=== PATIENT | male | born 1945 | race African-American/Black ===

== ENCOUNTER 2021-04-14 09:07 | Inpatient (IN) | payer OTHER, MEDICAID ==
[~2021-04-14] VITALS: Ht 177.8 cm; Wt 82.6 kg
[2021-04-14 10:15] LABS: HEMOGLOBIN. 10.2 g/dL (14.0-18.0); MEAN CORPUSCULAR HEMOGLOBIN 30.5 pg (28.0-32.0); MEAN CORPUSCULAR VOLUME 96.1 fL (80.0-94.0); MEAN PLATELET VOLUME 7.9 fl (7.4-10.4); PLATELET 501 x1000/uL (130-400); RED BLOOD CELL COUNT 3.33 mill/uL (4.7-6.1); RED CELL DISTRIBUTION WIDTH 18.3 % (11.6-14.6)
[2021-04-14 10:45] LABS: PLATELET ESTIMATE INCREASED
[2021-04-14] MEDS ORDERED: VANCOMYCIN 1 G PREMIX 200 ML IV SCH (11:00)
[2021-04-14] MEDS ORDERED: SODIUM CHLORIDE 0.9% 250 ML IV SCH (11:00)
[2021-04-14] MEDS ORDERED: PIPERACILLIN/TAZOBACTAM 3.375GM/50ML PREMIX IV ONE (11:00)
[2021-04-14] MEDS ORDERED: PIPERACILLIN/TAZ 3.375G PREMIX 50 ML IV SCH ×2 (11:15→16:45)
[2021-04-14 11:25] LABS: CHLORIDE 97 mEq/L (98-107)
[2021-04-14 11:29] LABS: ETHANOL BLOOD < 10 mg/dL
[2021-04-14] MEDS ORDERED: MORPHINE SULFATE 4 MG/ML CPJ (NOT FOR IM USE) IV ONE (11:30)
[2021-04-14] MEDS ORDERED: MORPHINE SULFATE 2 MG/ML CPJ (NOT FOR IM USE) IV SCH (11:30)
[2021-04-14] MEDS ORDERED: GUAIFENESIN 200MG/10ML SUGAR FREE UDC PO PRN (16:45)
[2021-04-14] MEDS ORDERED: CLONIDINE 0.1MG TABLET PO PRN (16:45)
[2021-04-14] MEDS ORDERED: DIPHENHYDRAMINE 50MG/ML VIAL IV PRN (16:45)
[2021-04-14] MEDS ORDERED: NITROGLYCERIN 0.4MG TABLET SL SL PRN (16:45)
[2021-04-14] MEDS ORDERED: NALOXONE HCL 0.4MG/ML VIAL IV PRN (16:45)
[2021-04-14] MEDS ORDERED: DOCUSATE SODIUM 100MG CAPSULE PO PRN (16:45)
[2021-04-14] MEDS ORDERED: ACETAMINOPHEN 325MG TABLET PO PRN (16:45)
[2021-04-14] MEDS ORDERED: MAGNESIUM/ALUMINUM HYDROXIDE/SIMETHICONE 30ML UDC PO PRN (16:45)
[2021-04-14] MEDS ORDERED: IPRATROPIUM/ALBUTEROL 0.5-3(2.5)MG/3ML NEB NEB PRN (16:45)
[2021-04-14] MEDS ORDERED: ONDANSETRON HCL 4MG/2ML INJ IV PRN (16:45)
[2021-04-14] MEDS: TRAMADOL 50MG TABLET PO PRN ×2 (17:03→23:57)
[2021-04-14] MEDS: BLOOD SUGAR DIAGNOSTIC STRIP TEST SCH ×2 (17:03→21:26)
[2021-04-14 17:16] LABS: T4 FREE 0.96 ng/dL (0.76-1.46)
[2021-04-14 17:47] LABS: VITAMIN B12 SERUM >2000 pg/mL pg/mL (211-911)
[2021-04-14] MEDS ORDERED: VANCOMYCIN 750 MG PREMIX 150 ML IV NR (18:00)
[2021-04-14] MEDS ORDERED: ENOXAPARIN 30MG/0.3ML SYR SUBCUT SCH (18:00)
[2021-04-14] MEDS: INSULIN LISPRO 100 UNITS/ML SUBCUT SCH ×2 (19:31→22:00)
[2021-04-14] MEDS ORDERED: ENOXAPARIN 100MG/ML SYR SUBCUT SCH (20:00)
[2021-04-14 21:00] VITALS: BP 120/55
[2021-04-14] MEDS ORDERED: ZOLPIDEM TARTRATE 5MG TABLET PO PRN (21:00)
[2021-04-14] MEDS: FAMOTIDINE 20MG TABLET PO SCH (21:26)
[2021-04-14] MEDS ORDERED: INSULIN GLARGINE UD 100 UNITS/ML SYR SUBCUT SCH (22:00)
[2021-04-14] MEDS ORDERED: PIPERACILLIN/TAZOBACTAM 3.375 G in DEXTROSE 5% WATER 50 ML IV SCH (23:00)
[2021-04-14] MEDS: PIPERACILLIN/TAZOBACTAM 3.375 G in DEXTROSE 5% WATER 50 ML IV SCH (23:57)
[2021-04-15] VITALS: BP 120/55
[2021-04-15 01:23] LABS: CREATINE KINASE MB FRACTION 2.9 ng/mL (0.5-3.6)
[2021-04-15] MEDS ORDERED: CALC667T8 PO (03:35)
[2021-04-15 04:00] VITALS: BP 105/48
[2021-04-15] MEDS: BLOOD SUGAR DIAGNOSTIC STRIP TEST SCH ×4 (06:04→21:32)
[2021-04-15 06:30] LABS: EOSINOPHILS % 2.7 % (0.0-5.0); HEMOGLOBIN. 11.1 g/dL (14.0-18.0); LYMPHOCYTES % 7.9 % (20.0-50.0); MEAN CORPUSCULAR HEMOGLOBIN 31.1 pg (28.0-32.0); MEAN CORPUSCULAR VOLUME 95.5 fL (80.0-94.0); MEAN PLATELET VOLUME 7.5 fl (7.4-10.4); MONOCYTES % 7.5 % (2.0-8.0); NEUTROPHILS % 80.9 % (40.0-76.0); PLATELET 529 x1000/uL (130-400); RED BLOOD CELL COUNT 3.56 mill/uL (4.7-6.1); RED CELL DISTRIBUTION WIDTH 17.5 % (11.6-14.6)
[2021-04-15 06:50] LABS: INR 1.3; PROTHROMBIN TIME 13.3 sec (9.6-11.0)
[2021-04-15 07:00] LABS: CHLORIDE 98 mEq/L (98-107)
[2021-04-15] MEDS: INSULIN LISPRO 100 UNITS/ML SUBCUT SCH ×4 (07:10→21:33)
[2021-04-15 07:12] LABS: CREATINE KINASE 53 IU/L (39-308); PHOSPHORUS 3.6 mg/dL (2.5-4.9)
[2021-04-15 07:22] LABS: CREATINE KINASE MB FRACTION 3.5 ng/mL (0.5-3.6)
[2021-04-15 08:00] VITALS: BP 125/60
[2021-04-15] MEDS: ASPIRIN 325MG EC TABLET PO SCH (08:51)
[2021-04-15 12:00] VITALS: BP 128/57
[2021-04-15] MEDS: TRAMADOL 50MG TABLET PO PRN (12:04)
[2021-04-15] MEDS: PIPERACILLIN/TAZOBACTAM 3.375 G in DEXTROSE 5% WATER 50 ML IV SCH ×2 (12:04→23:51)
[2021-04-15] MEDS: LIDOCAINE/PRILOCAINE CREAM 5 GM TUBE TOP SCH (14:29)
[2021-04-15 16:00] VITALS: BP 112/56
[2021-04-15 20:00] VITALS: BP 116/60
[2021-04-15] MEDS: ENOXAPARIN 80MG/0.8ML SYR SUBCUT SCH (21:32)
[2021-04-15] MEDS: FAMOTIDINE 20MG TABLET PO SCH (21:33)
[2021-04-15] MEDS: INSULIN GLARGINE UD 100 UNITS/ML SYR SUBCUT SCH (22:23)
[2021-04-16] VITALS (7 sets, daily range): BP systolic 113–129; BP diastolic 52–69
[2021-04-16] MEDS: TRAMADOL 50MG TABLET PO PRN ×2 (04:54→09:57)
[2021-04-16 06:57] LABS: BASOPHILS % 1.2 % (0.0-2.0); HEMATOCRIT. 31.2 % (42.0-52.0); HEMOGLOBIN. 10.4 g/dL (14.0-18.0); LYMPHOCYTES % 7.6 % (20.0-50.0); MEAN CORPUSCULAR HEMOGLOBIN 31.5 pg (28.0-32.0); MEAN CORPUSCULAR VOLUME 94.7 fL (80.0-94.0); MEAN PLATELET VOLUME 7.3 fl (7.4-10.4); MONOCYTES % 8.9 % (2.0-8.0); NEUTROPHILS % 79.3 % (40.0-76.0); PLATELET 518 x1000/uL (130-400); RED BLOOD CELL COUNT 3.29 mill/uL (4.7-6.1); RED CELL DISTRIBUTION WIDTH 17.4 % (11.6-14.6)
[2021-04-16] MEDS: BLOOD SUGAR DIAGNOSTIC STRIP TEST SCH ×5 (07:01→20:39)
[2021-04-16] MEDS: INSULIN LISPRO 100 UNITS/ML SUBCUT SCH ×5 (07:01→20:40)
[2021-04-16 07:22] LABS: PHOSPHORUS 3.2 mg/dL (2.5-4.9)
[2021-04-16] MEDS: ASPIRIN 325MG EC TABLET PO SCH (08:57)
[2021-04-16] MEDS: LIDOCAINE/PRILOCAINE CREAM 5 GM TUBE TOP SCH (08:57)
[2021-04-16] MEDS: PIPERACILLIN/TAZOBACTAM 3.375 G in DEXTROSE 5% WATER 50 ML IV SCH ×2 (11:24→23:46)
[2021-04-16] MEDS ORDERED: VANCOMYCIN 750 MG PREMIX 150 ML IV NR (14:00)
[2021-04-16] MEDS: FAMOTIDINE 20MG TABLET PO SCH (20:39)
[2021-04-16] MEDS: ENOXAPARIN 80MG/0.8ML SYR SUBCUT SCH (20:40)
[2021-04-16] MEDS: INSULIN GLARGINE UD 100 UNITS/ML SYR SUBCUT SCH (22:38)
[2021-04-17] VITALS: BP 121/60
[2021-04-17 04:00] VITALS: BP 126/57
[2021-04-17] MEDS: BLOOD SUGAR DIAGNOSTIC STRIP TEST SCH ×4 (06:22→21:30)
[2021-04-17] MEDS: DEXTROSE 50% WATER 50ML SYRINGE IV PRN ×3 (06:22→16:50)
[2021-04-17] MEDS: INSULIN LISPRO 100 UNITS/ML SUBCUT SCH ×4 (06:22→21:00)
[2021-04-17 07:51] VITALS: BP 125/69
[2021-04-17 08:18] LABS: BASOPHILS % 1.3 % (0.0-2.0); EOSINOPHILS % 2.1 % (0.0-5.0); HEMATOCRIT. 31.8 % (42.0-52.0); HEMOGLOBIN. 10.3 g/dL (14.0-18.0); LYMPHOCYTES % 8.8 % (20.0-50.0); MEAN CORPUSCULAR HEMOGLOBIN 30.9 pg (28.0-32.0); MEAN CORPUSCULAR VOLUME 94.9 fL (80.0-94.0); MEAN PLATELET VOLUME 7.3 fl (7.4-10.4); MONOCYTES % 6.2 % (2.0-8.0); NEUTROPHILS % 81.6 % (40.0-76.0); PLATELET 509 x1000/uL (130-400); RED BLOOD CELL COUNT 3.35 mill/uL (4.7-6.1)
[2021-04-17 08:26] LABS: PHOSPHORUS 3.2 mg/dL (2.5-4.9)
[2021-04-17] MEDS: LIDOCAINE/PRILOCAINE CREAM 5 GM TUBE TOP SCH (08:40)
[2021-04-17] MEDS: TRAMADOL 50MG TABLET PO PRN ×2 (08:41→21:49)
[2021-04-17] MEDS: ASPIRIN 325MG EC TABLET PO SCH (08:41)
[2021-04-17] MEDS: PIPERACILLIN/TAZOBACTAM 3.375 G in DEXTROSE 5% WATER 50 ML IV SCH (11:38)
[2021-04-17 12:00] VITALS: BP 130/59
[2021-04-17 16:00] VITALS: BP 130/64
[2021-04-17 20:00] VITALS: BP 137/67
[2021-04-17] MEDS: ENOXAPARIN 80MG/0.8ML SYR SUBCUT SCH (21:46)
[2021-04-17] MEDS: FAMOTIDINE 20MG TABLET PO SCH (21:46)
[2021-04-17] MEDS: INSULIN GLARGINE UD 100 UNITS/ML SYR SUBCUT SCH (22:00)
[2021-04-18] VITALS: BP 134/69
[2021-04-18] MEDS: PIPERACILLIN/TAZOBACTAM 3.375 G in DEXTROSE 5% WATER 50 ML IV SCH ×2 (00:21→12:09)
[2021-04-18 04:00] VITALS: BP 129/62
[2021-04-18] MEDS: DEXTROSE 50% WATER 50ML SYRINGE IV PRN (05:47)
[2021-04-18] MEDS: BLOOD SUGAR DIAGNOSTIC STRIP TEST SCH ×4 (05:48→21:18)
[2021-04-18] MEDS: INSULIN LISPRO 100 UNITS/ML SUBCUT SCH ×4 (06:13→21:21)
[2021-04-18 08:00] VITALS: BP 138/66
[2021-04-18] MEDS: ASPIRIN 325MG EC TABLET PO SCH (08:47)
[2021-04-18] MEDS: TRAMADOL 50MG TABLET PO PRN (08:51)
[2021-04-18] MEDS: LIDOCAINE/PRILOCAINE CREAM 5 GM TUBE TOP SCH (08:53)
[2021-04-18 11:55] VITALS: BP 113/50
[2021-04-18 16:00] VITALS: BP 128/58
[2021-04-18 20:00] VITALS: BP 137/63
[2021-04-18] MEDS: ENOXAPARIN 80MG/0.8ML SYR SUBCUT SCH (21:18)
[2021-04-18] MEDS: FAMOTIDINE 20MG TABLET PO SCH (21:18)
[2021-04-18] MEDS: INSULIN GLARGINE UD 100 UNITS/ML SYR SUBCUT SCH (22:00)
[2021-04-19] VITALS: BP 124/59
[2021-04-19] MEDS: PIPERACILLIN/TAZOBACTAM 3.375 G in DEXTROSE 5% WATER 50 ML IV SCH ×2 (00:30→12:49)
[2021-04-19 04:00] VITALS: BP 136/65
[2021-04-19] MEDS: BLOOD SUGAR DIAGNOSTIC STRIP TEST SCH ×4 (06:10→21:00)
[2021-04-19] MEDS: INSULIN LISPRO 100 UNITS/ML SUBCUT SCH ×4 (06:11→21:54)
[2021-04-19 07:19] LABS: BASOPHILS % 0.9 % (0.0-2.0); EOSINOPHILS % 2.5 % (0.0-5.0); HEMATOCRIT. 33.6 % (42.0-52.0); HEMOGLOBIN. 10.8 g/dL (14.0-18.0); LYMPHOCYTES % 8.2 % (20.0-50.0); MEAN CORPUSCULAR HEMOGLOBIN 30.7 pg (28.0-32.0); MEAN CORPUSCULAR VOLUME 95.7 fL (80.0-94.0); MEAN PLATELET VOLUME 7.3 fl (7.4-10.4); MONOCYTES % 7.5 % (2.0-8.0); NEUTROPHILS % 80.9 % (40.0-76.0); PLATELET 490 x1000/uL (130-400); RED BLOOD CELL COUNT 3.51 mill/uL (4.7-6.1); RED CELL DISTRIBUTION WIDTH 17.9 % (11.6-14.6)
[2021-04-19 07:43] LABS: PHOSPHORUS 4.2 mg/dL (2.5-4.9)
[2021-04-19 08:00] VITALS: BP 142/62
[2021-04-19] MEDS: LIDOCAINE/PRILOCAINE CREAM 5 GM TUBE TOP SCH (08:14)
[2021-04-19] MEDS: TRAMADOL 50MG TABLET PO PRN (08:26)
[2021-04-19] MEDS: ASPIRIN 325MG EC TABLET PO SCH (08:26)
[2021-04-19 12:00] VITALS: BP 147/83
[2021-04-19] MEDS ORDERED: VANCOMYCIN 750 MG PREMIX 150 ML IV NR (14:00)
[2021-04-19 14:56] LABS: HEPATITIS B SURFACE ANTIGEN NEGATIVE
[2021-04-19 16:00] VITALS: BP 148/68
[2021-04-19] MEDS: ACETAMINOPHEN 325MG TABLET PO PRN (17:48)
[2021-04-19 20:00] VITALS: BP 146/71
[2021-04-19 20:57] LABS: HEPATITIS B SURFACE ANTIGEN NEGATIVE
[2021-04-19] MEDS: ENOXAPARIN 80MG/0.8ML SYR SUBCUT SCH (21:53)
[2021-04-19] MEDS: FAMOTIDINE 20MG TABLET PO SCH (21:53)
[2021-04-19] MEDS: INSULIN GLARGINE UD 100 UNITS/ML SYR SUBCUT SCH (21:55)
[2021-04-20] VITALS: BP 143/71
[2021-04-20 04:00] VITALS: BP 110/68
[2021-04-20] MEDS: ACETAMINOPHEN 325MG TABLET PO PRN ×2 (04:05→12:34)
[2021-04-20] MEDS: INSULIN LISPRO 100 UNITS/ML SUBCUT SCH ×4 (06:18→21:29)
[2021-04-20] MEDS: BLOOD SUGAR DIAGNOSTIC STRIP TEST SCH ×4 (06:18→20:00)
[2021-04-20 07:01] LABS: BASOPHILS % 1.1 % (0.0-2.0); HEMOGLOBIN. 11.9 g/dL (14.0-18.0); LYMPHOCYTES % 7.5 % (20.0-50.0); MEAN CORPUSCULAR HEMOGLOBIN 31.7 pg (28.0-32.0); MEAN CORPUSCULAR VOLUME 96.2 fL (80.0-94.0); MEAN PLATELET VOLUME 7.4 fl (7.4-10.4); MONOCYTES % 8.3 % (2.0-8.0); NEUTROPHILS % 81.1 % (40.0-76.0); PLATELET 415 x1000/uL (130-400); RED BLOOD CELL COUNT 3.74 mill/uL (4.7-6.1); RED CELL DISTRIBUTION WIDTH 18.4 % (11.6-14.6)
[2021-04-20 07:31] LABS: PHOSPHORUS 3.9 mg/dL (2.5-4.9)
[2021-04-20 08:00] VITALS: BP 150/64
[2021-04-20] MEDS: LIDOCAINE/PRILOCAINE CREAM 5 GM TUBE TOP SCH (08:05)
[2021-04-20] MEDS: ASPIRIN 325MG EC TABLET PO SCH (08:18)
[2021-04-20 12:00] VITALS: BP 142/65
[2021-04-20 16:00] VITALS: BP 139/69
[2021-04-20 20:00] VITALS: BP 149/72
[2021-04-20] MEDS: FAMOTIDINE 20MG TABLET PO SCH (21:26)
[2021-04-20] MEDS: ENOXAPARIN 80MG/0.8ML SYR SUBCUT SCH (21:29)
[2021-04-20 21:41] LABS: HEPATITIS B SURFACE ANTIGEN NEGATIVE
[2021-04-20] MEDS: INSULIN GLARGINE UD 100 UNITS/ML SYR SUBCUT SCH (22:48)
[2021-04-21] VITALS: BP 148/62
[2021-04-21 04:00] VITALS: BP 146/112
[2021-04-21 05:25] LABS: BASOPHILS % 1.2 % (0.0-2.0); EOSINOPHILS % 2.5 % (0.0-5.0); HEMATOCRIT. 36.4 % (42.0-52.0); HEMOGLOBIN. 11.9 g/dL (14.0-18.0); LYMPHOCYTES % 10.6 % (20.0-50.0); MEAN CORPUSCULAR HEMOGLOBIN 31.8 pg (28.0-32.0); MEAN CORPUSCULAR VOLUME 97.2 fL (80.0-94.0); MEAN PLATELET VOLUME 7.4 fl (7.4-10.4); NEUTROPHILS % 77.7 % (40.0-76.0); PLATELET 408 x1000/uL (130-400); RED BLOOD CELL COUNT 3.75 mill/uL (4.7-6.1); RED CELL DISTRIBUTION WIDTH 18.7 % (11.6-14.6)
[2021-04-21 05:33] LABS: CHLORIDE 104 mEq/L (98-107)
[2021-04-21 05:45] LABS: PHOSPHORUS 4.4 mg/dL (2.5-4.9)
[2021-04-21] MEDS: BLOOD SUGAR DIAGNOSTIC STRIP TEST SCH ×4 (05:55→20:39)
[2021-04-21] MEDS: ACETAMINOPHEN 325MG TABLET PO PRN (05:56)
[2021-04-21] MEDS: INSULIN LISPRO 100 UNITS/ML SUBCUT SCH ×4 (07:10→22:19)
[2021-04-21 08:00] VITALS: BP 153/73
[2021-04-21] MEDS: LIDOCAINE/PRILOCAINE CREAM 5 GM TUBE TOP SCH (08:10)
[2021-04-21] MEDS: ASPIRIN 325MG EC TABLET PO SCH (08:18)
[2021-04-21 12:00] VITALS: BP 152/70
[2021-04-21 16:00] VITALS: BP 129/67
[2021-04-21 20:00] VITALS: BP 143/65
[2021-04-21] MEDS: FAMOTIDINE 20MG TABLET PO SCH (22:18)
[2021-04-21] MEDS: ENOXAPARIN 80MG/0.8ML SYR SUBCUT SCH (22:18)
[2021-04-21] MEDS: INSULIN GLARGINE UD 100 UNITS/ML SYR SUBCUT SCH (22:54)
[2021-04-22] VITALS: BP 149/72
[2021-04-22 04:00] VITALS: BP 140/68
[2021-04-22] MEDS: BLOOD SUGAR DIAGNOSTIC STRIP TEST SCH ×4 (06:21→20:41)
[2021-04-22] MEDS: INSULIN LISPRO 100 UNITS/ML SUBCUT SCH ×4 (06:29→20:42)
[2021-04-22 08:00] VITALS: BP 148/73
[2021-04-22] MEDS: LIDOCAINE/PRILOCAINE CREAM 5 GM TUBE TOP SCH (08:45)
[2021-04-22] MEDS: ASPIRIN 325MG EC TABLET PO SCH (08:45)
[2021-04-22 12:00] VITALS: BP 144/69
[2021-04-22] MEDS: ACETAMINOPHEN 325MG TABLET PO PRN ×2 (12:46→20:49)
[2021-04-22 16:00] VITALS: BP 149/73
[2021-04-22 20:00] VITALS: BP 144/69
[2021-04-22] MEDS: ENOXAPARIN 80MG/0.8ML SYR SUBCUT SCH (20:48)
[2021-04-22] MEDS: INSULIN GLARGINE UD 100 UNITS/ML SYR SUBCUT SCH (20:48)
[2021-04-22] MEDS: FAMOTIDINE 20MG TABLET PO SCH (20:49)
[2021-04-23] VITALS: BP 150/76
[2021-04-23 04:00] VITALS: BP 158/76
[2021-04-23] MEDS: BLOOD SUGAR DIAGNOSTIC STRIP TEST SCH ×4 (06:07→21:26)
[2021-04-23] MEDS: INSULIN LISPRO 100 UNITS/ML SUBCUT SCH ×4 (07:10→21:28)
[2021-04-23 08:00] VITALS: BP 146/67
[2021-04-23] MEDS: LIDOCAINE/PRILOCAINE CREAM 5 GM TUBE TOP SCH (08:44)
[2021-04-23] MEDS: ASPIRIN 325MG EC TABLET PO SCH (08:44)
[2021-04-23 12:00] VITALS: BP 133/72
[2021-04-23 12:17] LABS: HEMATOCRIT. 32.5 % (42.0-52.0); HEMOGLOBIN. 10.6 g/dL (14.0-18.0); MEAN CORPUSCULAR HEMOGLOBIN 30.8 pg (28.0-32.0); MEAN CORPUSCULAR VOLUME 94.2 fL (80.0-94.0); MEAN PLATELET VOLUME 7.5 fl (7.4-10.4); PLATELET 366 x1000/uL (130-400); RED BLOOD CELL COUNT 3.45 mill/uL (4.7-6.1); RED CELL DISTRIBUTION WIDTH 17.4 % (11.6-14.6)
[2021-04-23 13:12] LABS: PHOSPHORUS 3.2 mg/dL (2.5-4.9)
[2021-04-23 13:22] LABS: PLATELET ESTIMATE NORMAL
[2021-04-23 16:00] VITALS: BP 139/66
[2021-04-23] MEDS: ACETAMINOPHEN 325MG TABLET PO PRN (18:31)
[2021-04-23 20:00] VITALS: BP 138/64
[2021-04-23] MEDS: ENOXAPARIN 80MG/0.8ML SYR SUBCUT SCH (21:04)
[2021-04-23] MEDS: FAMOTIDINE 20MG TABLET PO SCH (21:04)
[2021-04-23] MEDS: INSULIN GLARGINE UD 100 UNITS/ML SYR SUBCUT SCH (22:00)
[2021-04-24] VITALS: BP 108/58
[2021-04-24 04:00] VITALS: BP 130/59
[2021-04-24] MEDS: BLOOD SUGAR DIAGNOSTIC STRIP TEST SCH ×4 (06:02→21:17)
[2021-04-24] MEDS: INSULIN LISPRO 100 UNITS/ML SUBCUT SCH ×4 (06:57→21:16)
[2021-04-24 08:00] VITALS: BP 138/69
[2021-04-24] MEDS: LIDOCAINE/PRILOCAINE CREAM 5 GM TUBE TOP SCH (09:00)
[2021-04-24] MEDS: ASPIRIN 325MG EC TABLET PO SCH (09:53)
[2021-04-24 12:00] VITALS: BP 138/69
[2021-04-24 16:00] VITALS: BP 125/77
[2021-04-24 20:00] VITALS: BP 152/81
[2021-04-24] MEDS: FAMOTIDINE 20MG TABLET PO SCH (21:11)
[2021-04-24] MEDS: ENOXAPARIN 80MG/0.8ML SYR SUBCUT SCH (21:11)
[2021-04-24] MEDS: INSULIN GLARGINE UD 100 UNITS/ML SYR SUBCUT SCH (21:17)
[2021-04-25] VITALS: BP 127/64
[2021-04-25 04:00] VITALS: BP 136/67
[2021-04-25] MEDS: BLOOD SUGAR DIAGNOSTIC STRIP TEST SCH ×4 (06:01→21:39)
[2021-04-25] MEDS: INSULIN LISPRO 100 UNITS/ML SUBCUT SCH ×4 (06:01→21:39)
[2021-04-25 06:27] LABS: EOSINOPHILS % 2.1 % (0.0-5.0); HEMATOCRIT. 36.8 % (42.0-52.0); HEMOGLOBIN. 11.8 g/dL (14.0-18.0); LYMPHOCYTES % 10.3 % (20.0-50.0); MEAN CORPUSCULAR HEMOGLOBIN 31.3 pg (28.0-32.0); MEAN CORPUSCULAR VOLUME 97.6 fL (80.0-94.0); MEAN PLATELET VOLUME 7.9 fl (7.4-10.4); MONOCYTES % 7.6 % (2.0-8.0); PLATELET 379 x1000/uL (130-400); RED BLOOD CELL COUNT 3.77 mill/uL (4.7-6.1); RED CELL DISTRIBUTION WIDTH 18.7 % (11.6-14.6)
[2021-04-25 08:00] VITALS: BP 140/71
[2021-04-25] MEDS: LIDOCAINE/PRILOCAINE CREAM 5 GM TUBE TOP SCH (09:00)
[2021-04-25] MEDS: ASPIRIN 325MG EC TABLET PO SCH (09:47)
[2021-04-25 12:00] VITALS: BP 118/60
[2021-04-25 16:00] VITALS: BP 131/67
[2021-04-25] MEDS ORDERED: HYDROCORTISONE 1% RECTAL CREAM 30GM PR PRN (16:00)
[2021-04-25] MEDS: ACETAMINOPHEN 325MG TABLET PO PRN (18:57)
[2021-04-25 20:00] VITALS: BP 109/52
[2021-04-25] MEDS: HYDROCORTISONE 1% CREAM 30GM TOP PRN (20:05)
[2021-04-25] MEDS: FAMOTIDINE 20MG TABLET PO SCH (21:38)
[2021-04-25] MEDS: ENOXAPARIN 80MG/0.8ML SYR SUBCUT SCH (21:38)
[2021-04-25] MEDS: INSULIN GLARGINE UD 100 UNITS/ML SYR SUBCUT SCH (21:38)
[2021-04-26] VITALS: BP 133/63
[2021-04-26 04:00] VITALS: BP 121/58
[2021-04-26] MEDS: INSULIN LISPRO 100 UNITS/ML SUBCUT SCH ×4 (06:46→21:46)
[2021-04-26] MEDS: BLOOD SUGAR DIAGNOSTIC STRIP TEST SCH ×4 (06:46→21:46)
[2021-04-26 06:58] LABS: BASOPHILS % 1.1 % (0.0-2.0); EOSINOPHILS % 2.8 % (0.0-5.0); MEAN CORPUSCULAR HEMOGLOBIN 31.1 pg (28.0-32.0); MEAN CORPUSCULAR VOLUME 95.8 fL (80.0-94.0); MEAN PLATELET VOLUME 7.9 fl (7.4-10.4); MONOCYTES % 10.4 % (2.0-8.0); NEUTROPHILS % 73.7 % (40.0-76.0); PLATELET 400 x1000/uL (130-400); RED BLOOD CELL COUNT 3.86 mill/uL (4.7-6.1); RED CELL DISTRIBUTION WIDTH 18.3 % (11.6-14.6)
[2021-04-26 07:07] LABS: PHOSPHORUS 5.9 mg/dL (2.5-4.9)
[2021-04-26 07:11] LABS: HEPATITIS B SURFACE ANTIGEN NEGATIVE
[2021-04-26 08:00] VITALS: BP 138/57
[2021-04-26] MEDS: ASPIRIN 325MG EC TABLET PO SCH (08:55)
[2021-04-26] MEDS: HYDROCORTISONE 1% CREAM 30GM TOP PRN (08:56)
[2021-04-26] MEDS: LIDOCAINE/PRILOCAINE CREAM 5 GM TUBE TOP SCH (08:56)
[2021-04-26 12:00] VITALS: BP 120/60
[2021-04-26 16:00] VITALS: BP 115/61
[2021-04-26] MEDS: ACETAMINOPHEN 325MG TABLET PO PRN (16:47)
[2021-04-26 20:00] VITALS: BP 121/67
[2021-04-26] MEDS: FAMOTIDINE 20MG TABLET PO SCH (20:57)
[2021-04-26] MEDS: ENOXAPARIN 80MG/0.8ML SYR SUBCUT SCH (20:58)
[2021-04-26] MEDS: INSULIN GLARGINE UD 100 UNITS/ML SYR SUBCUT SCH (22:00)
[2021-04-27] VITALS: BP 125/62
[2021-04-27] MEDS: ACETAMINOPHEN 325MG TABLET PO PRN ×2 (02:09→11:20)
[2021-04-27 03:59] VITALS: BP 131/64
[2021-04-27] MEDS: BLOOD SUGAR DIAGNOSTIC STRIP TEST SCH ×4 (06:53→20:52)
[2021-04-27] MEDS: INSULIN LISPRO 100 UNITS/ML SUBCUT SCH ×4 (06:53→20:52)
[2021-04-27 07:10] LABS: BASOPHILS % 1.1 % (0.0-2.0); EOSINOPHILS % 2.2 % (0.0-5.0); HEMATOCRIT. 34.6 % (42.0-52.0); HEMOGLOBIN. 11.1 g/dL (14.0-18.0); LYMPHOCYTES % 7.1 % (20.0-50.0); MEAN CORPUSCULAR HEMOGLOBIN 30.8 pg (28.0-32.0); MONOCYTES % 8.5 % (2.0-8.0); NEUTROPHILS % 81.1 % (40.0-76.0); PLATELET 389 x1000/uL (130-400); RED CELL DISTRIBUTION WIDTH 18.6 % (11.6-14.6)
[2021-04-27 07:40] LABS: PHOSPHORUS 5.4 mg/dL (2.5-4.9)
[2021-04-27 08:00] VITALS: BP 108/49
[2021-04-27] MEDS: LIDOCAINE/PRILOCAINE CREAM 5 GM TUBE TOP SCH (09:00)
[2021-04-27] MEDS: ASPIRIN 325MG EC TABLET PO SCH (09:39)
[2021-04-27 12:00] VITALS: BP 136/64
[2021-04-27 16:00] VITALS: BP 114/69
[2021-04-27 20:00] VITALS: BP 105/63
[2021-04-27] MEDS: CALAMINE LOTION 120ML TOP SCH (20:52)
[2021-04-27] MEDS: FAMOTIDINE 20MG TABLET PO SCH (20:52)
[2021-04-27] MEDS: INSULIN GLARGINE UD 100 UNITS/ML SYR SUBCUT SCH (20:52)
[2021-04-27] MEDS: ENOXAPARIN 80MG/0.8ML SYR SUBCUT SCH (20:53)
[2021-04-28] VITALS: BP 124/60
[2021-04-28 04:00] VITALS: BP 128/62
[2021-04-28] MEDS: BLOOD SUGAR DIAGNOSTIC STRIP TEST SCH ×4 (06:15→21:12)
[2021-04-28] MEDS: INSULIN LISPRO 100 UNITS/ML SUBCUT SCH ×4 (06:15→21:00)
[2021-04-28 07:19] LABS: BASOPHILS % 1.1 % (0.0-2.0); EOSINOPHILS % 2.2 % (0.0-5.0); HEMOGLOBIN. 11.7 g/dL (14.0-18.0); LYMPHOCYTES % 9.2 % (20.0-50.0); MEAN CORPUSCULAR HEMOGLOBIN 31.2 pg (28.0-32.0); MEAN CORPUSCULAR VOLUME 95.9 fL (80.0-94.0); MONOCYTES % 7.2 % (2.0-8.0); NEUTROPHILS % 80.3 % (40.0-76.0); PLATELET 423 x1000/uL (130-400); RED BLOOD CELL COUNT 3.75 mill/uL (4.7-6.1)
[2021-04-28 07:27] LABS: PHOSPHORUS 6.2 mg/dL (2.5-4.9)
[2021-04-28 08:00] VITALS: BP 122/56
[2021-04-28] MEDS: ASPIRIN 325MG EC TABLET PO SCH (08:54)
[2021-04-28] MEDS: CALAMINE LOTION 120ML TOP SCH ×2 (08:55→23:03)
[2021-04-28] MEDS: LIDOCAINE/PRILOCAINE CREAM 5 GM TUBE TOP SCH (08:55)
[2021-04-28 12:00] VITALS: BP 124/55
[2021-04-28 16:00] VITALS: BP 130/58
[2021-04-28 20:00] VITALS: BP 126/59
[2021-04-28] MEDS: FAMOTIDINE 20MG TABLET PO SCH (23:03)
[2021-04-28] MEDS: ACETAMINOPHEN 325MG TABLET PO PRN (23:04)
[2021-04-28] MEDS: INSULIN GLARGINE UD 100 UNITS/ML SYR SUBCUT SCH (23:04)
[2021-04-28] MEDS: ENOXAPARIN 80MG/0.8ML SYR SUBCUT SCH (23:04)
[2021-04-29] VITALS: BP 128/64
[2021-04-29 04:00] VITALS: BP 135/65
[2021-04-29 06:35] LABS: BASOPHILS % 1.3 % (0.0-2.0); EOSINOPHILS % 1.7 % (0.0-5.0); HEMATOCRIT. 35.6 % (42.0-52.0); HEMOGLOBIN. 11.3 g/dL (14.0-18.0); LYMPHOCYTES % 9.3 % (20.0-50.0); MEAN CORPUSCULAR HEMOGLOBIN 30.5 pg (28.0-32.0); MEAN CORPUSCULAR VOLUME 95.8 fL (80.0-94.0); MEAN PLATELET VOLUME 7.8 fl (7.4-10.4); MONOCYTES % 7.9 % (2.0-8.0); NEUTROPHILS % 79.8 % (40.0-76.0); PLATELET 412 x1000/uL (130-400); RED BLOOD CELL COUNT 3.71 mill/uL (4.7-6.1); RED CELL DISTRIBUTION WIDTH 18.3 % (11.6-14.6)
[2021-04-29] MEDS: BLOOD SUGAR DIAGNOSTIC STRIP TEST SCH ×4 (06:44→20:02)
[2021-04-29] MEDS: INSULIN LISPRO 100 UNITS/ML SUBCUT SCH ×4 (07:10→22:40)
[2021-04-29 07:17] LABS: PHOSPHORUS 5.6 mg/dL (2.5-4.9)
[2021-04-29 08:00] VITALS: BP 126/59
[2021-04-29] MEDS: LIDOCAINE/PRILOCAINE CREAM 5 GM TUBE TOP SCH (08:29)
[2021-04-29] MEDS: CALAMINE LOTION 120ML TOP SCH ×2 (08:29→22:42)
[2021-04-29] MEDS: ASPIRIN 325MG EC TABLET PO SCH (08:29)
[2021-04-29 12:00] VITALS: BP 139/64
[2021-04-29] MEDS: ACETAMINOPHEN 325MG TABLET PO PRN (13:35)
[2021-04-29 16:00] VITALS: BP 151/68
[2021-04-29 20:00] VITALS: BP 131/45
[2021-04-29] MEDS: INSULIN GLARGINE UD 100 UNITS/ML SYR SUBCUT SCH (22:40)
[2021-04-29] MEDS: ENOXAPARIN 80MG/0.8ML SYR SUBCUT SCH (22:41)
[2021-04-29] MEDS: FAMOTIDINE 20MG TABLET PO SCH (22:42)
[2021-04-30] VITALS: BP 111/39
[2021-04-30 04:00] VITALS: BP 114/53
[2021-04-30] MEDS: BLOOD SUGAR DIAGNOSTIC STRIP TEST SCH ×4 (06:40→21:00)
[2021-04-30] MEDS: INSULIN LISPRO 100 UNITS/ML SUBCUT SCH ×4 (07:10→21:00)
[2021-04-30 08:00] VITALS: BP 134/60
[2021-04-30] MEDS: LIDOCAINE/PRILOCAINE CREAM 5 GM TUBE TOP SCH (08:35)
[2021-04-30] MEDS: CALAMINE LOTION 120ML TOP SCH ×2 (08:36→22:59)
[2021-04-30] MEDS: ASPIRIN 325MG EC TABLET PO SCH (08:38)
[2021-04-30 10:38] LABS: HEMATOCRIT. 33.8 % (42.0-52.0); HEMOGLOBIN. 11.3 g/dL (14.0-18.0); MEAN CORPUSCULAR HEMOGLOBIN 31.8 pg (28.0-32.0); MEAN CORPUSCULAR VOLUME 95.4 fL (80.0-94.0); MEAN PLATELET VOLUME 7.9 fl (7.4-10.4); PLATELET 408 x1000/uL (130-400); RED BLOOD CELL COUNT 3.54 mill/uL (4.7-6.1); RED CELL DISTRIBUTION WIDTH 17.6 % (11.6-14.6)
[2021-04-30 10:55] LABS: PHOSPHORUS 6.2 mg/dL (2.5-4.9)
[2021-04-30 12:00] VITALS: BP 129/58
[2021-04-30 14:21] LABS: PLATELET ESTIMATE SLIGHTLY INCREASED
[2021-04-30 16:00] VITALS: BP 134/55
[2021-04-30] MEDS: ACETAMINOPHEN 325MG TABLET PO PRN (17:15)
[2021-04-30 20:00] VITALS: BP 143/68
[2021-04-30] MEDS: ENOXAPARIN 80MG/0.8ML SYR SUBCUT SCH (22:59)
[2021-04-30] MEDS: INSULIN GLARGINE UD 100 UNITS/ML SYR SUBCUT SCH (23:00)
[2021-04-30] MEDS: FAMOTIDINE 20MG TABLET PO SCH (23:01)
[2021-05-01] VITALS: BP 139/63
[2021-05-01 04:00] VITALS: BP 133/63
[2021-05-01] MEDS: INSULIN LISPRO 100 UNITS/ML SUBCUT SCH ×4 (07:10→21:00)
[2021-05-01] MEDS: BLOOD SUGAR DIAGNOSTIC STRIP TEST SCH ×4 (07:38→21:08)
[2021-05-01 08:00] VITALS: BP 128/55
[2021-05-01 08:02] LABS: PHOSPHORUS 5.6 mg/dL (2.5-4.9)
[2021-05-01] MEDS: LIDOCAINE/PRILOCAINE CREAM 5 GM TUBE TOP SCH (09:00)
[2021-05-01] MEDS: CALAMINE LOTION 120ML TOP SCH ×2 (09:00→21:10)
[2021-05-01] MEDS: ASPIRIN 325MG EC TABLET PO SCH (10:16)
[2021-05-01] MEDS: ACETAMINOPHEN 325MG TABLET PO PRN (10:23)
[2021-05-01 11:31] LABS: BASOPHILS % 1.2 % (0.0-2.0); EOSINOPHILS % 1.9 % (0.0-5.0); HEMATOCRIT. 34.3 % (42.0-52.0); HEMOGLOBIN. 10.9 g/dL (14.0-18.0); LYMPHOCYTES % 7.6 % (20.0-50.0); MEAN CORPUSCULAR HEMOGLOBIN 30.4 pg (28.0-32.0); MEAN CORPUSCULAR VOLUME 95.4 fL (80.0-94.0); MEAN PLATELET VOLUME 8.2 fl (7.4-10.4); MONOCYTES % 8.1 % (2.0-8.0); NEUTROPHILS % 81.2 % (40.0-76.0); PLATELET 393 x1000/uL (130-400); RED BLOOD CELL COUNT 3.59 mill/uL (4.7-6.1); RED CELL DISTRIBUTION WIDTH 17.7 % (11.6-14.6)
[2021-05-01 12:00] VITALS: BP 125/60
[2021-05-01 16:00] VITALS: BP 123/62
[2021-05-01 20:00] VITALS: BP 137/60
[2021-05-01] MEDS: FAMOTIDINE 20MG TABLET PO SCH (21:09)
[2021-05-01] MEDS: ENOXAPARIN 80MG/0.8ML SYR SUBCUT SCH (21:10)
[2021-05-01] MEDS: INSULIN GLARGINE UD 100 UNITS/ML SYR SUBCUT SCH (21:11)
[2021-05-02] VITALS: BP 142/67
[2021-05-02 04:00] VITALS: BP 131/67
[2021-05-02] MEDS: ACETAMINOPHEN 325MG TABLET PO PRN ×2 (04:55→10:38)
[2021-05-02] MEDS: INSULIN LISPRO 100 UNITS/ML SUBCUT SCH ×4 (07:10→21:18)
[2021-05-02] MEDS: BLOOD SUGAR DIAGNOSTIC STRIP TEST SCH ×4 (07:14→21:09)
[2021-05-02 08:00] VITALS: BP 133/64
[2021-05-02] MEDS: LIDOCAINE/PRILOCAINE CREAM 5 GM TUBE TOP SCH (09:00)
[2021-05-02] MEDS: CALAMINE LOTION 120ML TOP SCH ×2 (09:00→21:10)
[2021-05-02] MEDS: ASPIRIN 325MG EC TABLET PO SCH (10:38)
[2021-05-02 12:00] VITALS: BP 108/57
[2021-05-02 16:00] VITALS: BP 135/63
[2021-05-02 20:00] VITALS: BP 151/32
[2021-05-02] MEDS: FAMOTIDINE 20MG TABLET PO SCH (21:10)
[2021-05-02] MEDS: ENOXAPARIN 80MG/0.8ML SYR SUBCUT SCH (21:10)
[2021-05-02] MEDS: INSULIN GLARGINE UD 100 UNITS/ML SYR SUBCUT SCH (21:18)
[2021-05-03] VITALS: BP 122/31
[2021-05-03 04:00] VITALS: BP 123/30
[2021-05-03] MEDS: BLOOD SUGAR DIAGNOSTIC STRIP TEST SCH ×4 (06:18→20:34)
[2021-05-03] MEDS: INSULIN LISPRO 100 UNITS/ML SUBCUT SCH ×4 (06:18→21:10)
[2021-05-03 08:00] VITALS: BP 106/63
[2021-05-03] MEDS: ASPIRIN 325MG EC TABLET PO SCH (08:39)
[2021-05-03] MEDS: CALAMINE LOTION 120ML TOP SCH ×2 (08:50→21:08)
[2021-05-03 12:00] VITALS: BP 115/45
[2021-05-03 16:00] VITALS: BP 114/46
[2021-05-03] MEDS: ACETAMINOPHEN 325MG TABLET PO PRN (17:35)
[2021-05-03 20:00] VITALS: BP 122/41
[2021-05-03] MEDS: FAMOTIDINE 20MG TABLET PO SCH (21:06)
[2021-05-03] MEDS: ENOXAPARIN 80MG/0.8ML SYR SUBCUT SCH (21:07)
[2021-05-03] MEDS: INSULIN GLARGINE UD 100 UNITS/ML SYR SUBCUT SCH (22:49)
[2021-05-04] VITALS: BP 115/44
[2021-05-04 04:00] VITALS: BP 132/40
[2021-05-04 06:57] LABS: PHOSPHORUS 6.3 mg/dL (2.5-4.9)
[2021-05-04 07:12] LABS: HEMATOCRIT. 36.9 % (42.0-52.0); HEMOGLOBIN. 12.2 g/dL (14.0-18.0); MEAN CORPUSCULAR HEMOGLOBIN 31.1 pg (28.0-32.0); MEAN PLATELET VOLUME 8.5 fl (7.4-10.4); PLATELET 397 x1000/uL (130-400); RED BLOOD CELL COUNT 3.93 mill/uL (4.7-6.1)
[2021-05-04] MEDS: INSULIN LISPRO 100 UNITS/ML SUBCUT SCH (07:36)
[2021-05-04 08:00] VITALS: BP 128/84
[2021-05-04] MEDS ORDERED: CALCIUM ACETATE 667MG CAPSULE PO SCH (08:10)
[2021-05-04] MEDS: ASPIRIN 325MG EC TABLET PO SCH (09:36)
[2021-05-04] MEDS: CALAMINE LOTION 120ML TOP SCH (09:37)
[2021-05-04] MEDS: LIDOCAINE/PRILOCAINE CREAM 5 GM TUBE TOP SCH (09:37)
[2021-05-04 10:42] VITALS: BP 128/84
[2021-05-04 11:42] LABS: PLATELET ESTIMATE NORMAL
== END 2021-05-04 11:50 | DRG 871 ==
LOC: ER 09:07 → EDBEDREQTM 13:44 → EDBEDREQ 13:44 → ENRESERV 14:41 → CANRESERV 14:41 → MICUSO 19:55 → 7EST 20:06 → 6EST 04-16 16:50 → 7EST 04-16 17:25
PROVIDERS: ADMIT Internal Medicine; ATTEND Internal Medicine
PROC: 5A1D70Z Performance of Urinary Filtration, Intermittent, Less than 6 Hours Per Day (ICD-10-PCS; principal; 2021-04-15)
PROC: 5A1D70Z Performance of Urinary Filtration, Intermittent, Less than 6 Hours Per Day (ICD-10-PCS; 2021-04-19)
PROC: 5A1D70Z Performance of Urinary Filtration, Intermittent, Less than 6 Hours Per Day (ICD-10-PCS; 2021-04-20)
PROC: 5A1D70Z Performance of Urinary Filtration, Intermittent, Less than 6 Hours Per Day (ICD-10-PCS; 2021-04-21)
PROC: 5A1D70Z Performance of Urinary Filtration, Intermittent, Less than 6 Hours Per Day (ICD-10-PCS; 2021-04-23)
PROC: 5A1D70Z Performance of Urinary Filtration, Intermittent, Less than 6 Hours Per Day (ICD-10-PCS; 2021-04-26)
PROC: 5A1D70Z Performance of Urinary Filtration, Intermittent, Less than 6 Hours Per Day (ICD-10-PCS; 2021-04-28)
PROC: 5A1D70Z Performance of Urinary Filtration, Intermittent, Less than 6 Hours Per Day (ICD-10-PCS; 2021-04-30)
PROC: 5A1D70Z Performance of Urinary Filtration, Intermittent, Less than 6 Hours Per Day (ICD-10-PCS; 2021-05-03)
DX: A41.9 Sepsis, unspecified organism (principal); N18.6 End stage renal disease; J96.02 Acute respiratory failure with hypercapnia; J96.01 Acute respiratory failure with hypoxia; E43 Unspecified severe protein-calorie malnutrition; I50.43 Acute on chronic combined systolic (congestive) and diastolic (congestive) heart failure; I82.411 Acute embolism and thrombosis of right femoral vein; E87.1 Hypo-osmolality and hyponatremia; I13.2 Hypertensive heart and chronic kidney disease with heart failure and with stage 5 chronic kidney disease, or end stage renal disease; G93.40 Encephalopathy, unspecified; K92.1 Melena; N17.9 Acute kidney failure, unspecified; D63.8 Anemia in other chronic diseases classified elsewhere; E11.22 Type 2 diabetes mellitus with diabetic chronic kidney disease; E11.65 Type 2 diabetes mellitus with hyperglycemia; E11.51 Type 2 diabetes mellitus with diabetic peripheral angiopathy without gangrene; E78.5 Hyperlipidemia, unspecified; X58.XXXA Exposure to other specified factors, initial encounter; Z20.822 Contact with and (suspected) exposure to COVID-19; S80.811A Abrasion, right lower leg, initial encounter; J44.9 Chronic obstructive pulmonary disease, unspecified; Z79.01 Long term (current) use of anticoagulants; Z82.49 Family history of ischemic heart disease and other diseases of the circulatory system; Z83.3 Family history of diabetes mellitus; Z89.512 Acquired absence of left leg below knee; Z89.612 Acquired absence of left leg above knee; Z95.0 Presence of cardiac pacemaker; Z99.2 Dependence on renal dialysis; Z79.4 Long term (current) use of insulin; Z99.3 Dependence on wheelchair; Y93.89 Activity, other specified; Y92.89 Other specified places as the place of occurrence of the external cause; Y99.8 Other external cause status; Z68.26 Body mass index [BMI] 26.0-26.9, adult
CPT/HCPCS: 36415; 71045; 80048; 80053; 80061; 80202; 80320; 82550; 82553; 82607; 82746; 82962; 83036; 83540; 83550; 83605; 83735; 83880; 84100; 84439; 84443; 84484; 85025; 86705; 86709; 86803; 87340; 87426; 93005; 93306; 93922; 93970; 93971; 97110; 97162; 97166; 97530; 97535; 99291; J1650; J1815; J2270; J2543; J3370; J7060; G0480

== ENCOUNTER 2021-07-09 12:25 | Inpatient (IN) | payer OTHER, MEDICAID ==
[~2021-07-09] VITALS: Ht 177.8 cm; Wt 88.5 kg
[~2021-07-09 12:25] MED LIST: CALC667T8 PO
[2021-07-09 12:50] LABS: HEMATOCRIT. 28.6 % (42.0-52.0); HEMOGLOBIN. 9.3 g/dL (14.0-18.0); MEAN CORPUSCULAR HEMOGLOBIN 29.6 pg (28.0-32.0); MEAN CORPUSCULAR VOLUME 91.2 fL (80.0-94.0); MEAN PLATELET VOLUME 7.8 fl (7.4-10.4); PLATELET 604 x1000/uL (130-400); RED BLOOD CELL COUNT 3.13 mill/uL (4.7-6.1); RED CELL DISTRIBUTION WIDTH 17.5 % (11.6-14.6)
[2021-07-09 12:58] LABS: CHLORIDE 102 mEq/L (98-107)
[2021-07-09 13:24] LABS: PLATELET ESTIMATE INCREASED
[2021-07-09] MEDS ORDERED: ASPIRIN 325MG EC TABLET PO ONE (16:30)
[2021-07-09] MEDS ORDERED: MAGNESIUM/ALUMINUM HYDROXIDE/SIMETHICONE 30ML UDC PO PRN (20:30)
[2021-07-09] MEDS ORDERED: HYDROMORPHONE HCL/PF 2MG/ML CPJ IV PRN (20:30)
[2021-07-09] MEDS ORDERED: NALOXONE HCL 0.4MG/ML VIAL IV PRN (20:30)
[2021-07-09] MEDS ORDERED: ONDANSETRON HCL 4MG/2ML INJ IV PRN (20:30)
[2021-07-09] MEDS ORDERED: CLONIDINE 0.1MG TABLET PO PRN (20:30)
[2021-07-09] MEDS ORDERED: HYDROCODONE/ACETAMINOPHEN 5/325MG TABLET PO PRN (20:30)
[2021-07-09] MEDS ORDERED: ENOXAPARIN 40MG/0.4ML SYR SUBCUT SCH (21:00)
[2021-07-10] MEDS ORDERED: AMLODIPINE 10MG TABLET PO SCH (09:00)
[2021-07-10] MEDS ORDERED: ASPIRIN 81MG EC TABLET PO SCH (09:00)
[2021-07-10] MEDS ORDERED: DEXTROSE 50% WATER 50ML SYRINGE IV PRN (09:45)
[2021-07-10 12:00] VITALS: BP 116/50
[2021-07-10 12:50] VITALS: BP 117/54
[2021-07-10 12:57] LABS: BASOPHILS % 1.1 % (0.0-2.0); EOSINOPHILS % 2.8 % (0.0-5.0); HEMOGLOBIN. 8.6 g/dL (14.0-18.0); LYMPHOCYTES % 7.4 % (20.0-50.0); MEAN CORPUSCULAR HEMOGLOBIN 29.3 pg (28.0-32.0); MEAN CORPUSCULAR VOLUME 94.9 fL (80.0-94.0); MEAN PLATELET VOLUME 7.9 fl (7.4-10.4); NEUTROPHILS % 82.7 % (40.0-76.0); PLATELET 730 x1000/uL (130-400); RED BLOOD CELL COUNT 2.95 mill/uL (4.7-6.1)
[2021-07-10] MEDS: BLOOD SUGAR DIAGNOSTIC STRIP TEST SCH ×3 (13:02→21:36)
[2021-07-10 13:10] LABS: CHLORIDE 103 mEq/L (98-107)
[2021-07-10] MEDS: INSULIN LISPRO 100 UNITS/ML SUBCUT SCH ×3 (13:15→21:40)
[2021-07-10 13:20] LABS: LDL CHOLESTEROL 51 mg/dL (5-100)
[2021-07-10 13:21] LABS: HDL CHOLESTEROL 40 mg/dL (40-59)
[2021-07-10 16:00] VITALS: BP 94/43
[2021-07-10] MEDS ORDERED: ASPI-986 MT (19:28)
[2021-07-10] MEDS ORDERED: FAMO-134 MT (19:28)
[2021-07-10] MEDS ORDERED: LIP40 MT (19:28)
[2021-07-10] MEDS ORDERED: SENN-257 MT (19:28)
[2021-07-10] MEDS ORDERED: DOCU250C14 MT (19:28)
[2021-07-10] MEDS ORDERED: REN800 MT (19:28)
[2021-07-10] MEDS ORDERED: ACET-2708 MT (19:28)
[2021-07-10] MEDS ORDERED: MIDO10TA MT (19:28)
[2021-07-10] MEDS ORDERED: ZINC1CAP2 PO (19:28)
[2021-07-10] MEDS ORDERED: INSU100I28 SQ (19:28)
[2021-07-10] MEDS ORDERED: FOLI1TAB87 MT (19:28)
[2021-07-10] MEDS ORDERED: SILV20CR13 TP (19:28)
[2021-07-10 20:00] VITALS: BP 104/49
[2021-07-10] MEDS ORDERED: ENOXAPARIN 30MG/0.3ML SYR SUBCUT SCH (21:00)
[2021-07-11] VITALS: BP 101/48
[2021-07-11 04:00] VITALS: BP 113/51
[2021-07-11 05:37] LABS: HEMATOCRIT. 26.2 % (42.0-52.0); HEMOGLOBIN. 8.5 g/dL (14.0-18.0); MEAN CORPUSCULAR HEMOGLOBIN 30.1 pg (28.0-32.0); MEAN CORPUSCULAR VOLUME 92.7 fL (80.0-94.0); PLATELET 647 x1000/uL (130-400); RED BLOOD CELL COUNT 2.82 mill/uL (4.7-6.1); RED CELL DISTRIBUTION WIDTH 17.9 % (11.6-14.6)
[2021-07-11 06:01] LABS: CHLORIDE 103 mEq/L (98-107)
[2021-07-11] MEDS: BLOOD SUGAR DIAGNOSTIC STRIP TEST SCH ×4 (07:00→20:54)
[2021-07-11 08:00] VITALS: BP 111/45
[2021-07-11] MEDS: INSULIN LISPRO 100 UNITS/ML SUBCUT SCH ×4 (08:35→20:54)
[2021-07-11 12:00] VITALS: BP 101/42
[2021-07-11 16:00] VITALS: BP 96/40
[2021-07-11 18:31] LABS: HEPATITIS B SURFACE ANTIGEN NEGATIVE
[2021-07-11 20:00] VITALS: BP 100/52
[2021-07-11 22:26] LABS: PLATELET ESTIMATE INCREASED
[2021-07-12] VITALS: BP 94/47
[2021-07-12 04:00] VITALS: BP 90/53
[2021-07-12] MEDS: INSULIN LISPRO 100 UNITS/ML SUBCUT SCH ×4 (05:27→21:11)
[2021-07-12] MEDS: BLOOD SUGAR DIAGNOSTIC STRIP TEST SCH ×4 (05:27→21:00)
[2021-07-12 06:04] LABS: PHOSPHORUS 4.5 mg/dL (2.5-4.9)
[2021-07-12 06:44] LABS: HEMATOCRIT. 25.2 % (42.0-52.0); MEAN CORPUSCULAR HEMOGLOBIN 29.5 pg (28.0-32.0); MEAN CORPUSCULAR VOLUME 106.9 fL (80.0-94.0); MEAN PLATELET VOLUME 8.1 fl (7.4-10.4); PLATELET 518 x1000/uL (130-400); RED BLOOD CELL COUNT 2.35 mill/uL (4.7-6.1); RED CELL DISTRIBUTION WIDTH 19.6 % (11.6-14.6)
[2021-07-12 08:22] VITALS: BP 96/43
[2021-07-12 12:02] LABS: NUCLEATED RED BLOOD CELLS 2 /100 WBC; PLATELET ESTIMATE INCREASED
[2021-07-12 12:29] VITALS: BP 91/39
[2021-07-12 16:02] VITALS: BP 84/39
[2021-07-12 20:00] VITALS: BP 89/40
[2021-07-12] MEDS ORDERED: MIDODRINE HCL 5MG TABLET PO NR (21:00)
[2021-07-12] MEDS ORDERED: EPOETIN ALFA-EPBX 4,000 UNIT/ML VIAL SUBCUT SCH (21:00)
[2021-07-13] VITALS (11 sets, daily range): BP systolic 74–96; BP diastolic 28–40
[2021-07-13] MEDS: BLOOD SUGAR DIAGNOSTIC STRIP TEST SCH ×4 (07:58→21:00)
[2021-07-13] MEDS: INSULIN LISPRO 100 UNITS/ML SUBCUT SCH ×4 (08:00→21:00)
[2021-07-13] MEDS: MIDODRINE HCL 5MG TABLET PO SCH ×2 (13:43→16:27)
[2021-07-13 16:39] LABS: MEAN CORPUSCULAR HEMOGLOBIN 29.8 pg (28.0-32.0); MEAN CORPUSCULAR VOLUME 97.3 fL (80.0-94.0); MEAN PLATELET VOLUME 7.9 fl (7.4-10.4); PLATELET 674 x1000/uL (130-400); RED BLOOD CELL COUNT 1.79 mill/uL (4.7-6.1); RED CELL DISTRIBUTION WIDTH 19.1 % (11.6-14.6)
[2021-07-13 16:45] LABS: HEMOGLOBIN. 5.3 g/dL (14.0-18.0)
[2021-07-13 16:46] LABS: HEMATOCRIT. 17.4 % (42.0-52.0)
[2021-07-13 17:37] LABS: PLATELET ESTIMATE INCREASED
[2021-07-13 22:12] LABS: HEMATOCRIT 21.4 % (42.0-52.0)
[2021-07-13 22:15] LABS: HEMOGLOBIN 6.7 g/dL (14.0-18.0)
[2021-07-14] VITALS (38 sets, daily range): BP systolic 62–145; BP diastolic 20–104
[2021-07-14 06:29] LABS: HEMATOCRIT. 27.5 % (42.0-52.0); HEMOGLOBIN. 8.6 g/dL (14.0-18.0); MEAN CORPUSCULAR HEMOGLOBIN 30.5 pg (28.0-32.0); MEAN CORPUSCULAR VOLUME 97.1 fL (80.0-94.0); PLATELET 725 x1000/uL (130-400); RED BLOOD CELL COUNT 2.83 mill/uL (4.7-6.1); RED CELL DISTRIBUTION WIDTH 17.1 % (11.6-14.6)
[2021-07-14 06:38] LABS: INR 1.8; PROTHROMBIN TIME 18.8 sec (9.6-11.0)
[2021-07-14 06:50] LABS: CHLORIDE 103 mEq/L (98-107)
[2021-07-14 07:10] LABS: PHOSPHORUS 5.5 mg/dL (2.5-4.9)
[2021-07-14] MEDS: BLOOD SUGAR DIAGNOSTIC STRIP TEST SCH ×4 (07:20→20:52)
[2021-07-14] MEDS ORDERED: PANTOPRAZOLE SODIUM 40 MG/VIAL IV SCH (08:30)
[2021-07-14] MEDS: INSULIN LISPRO 100 UNITS/ML SUBCUT SCH ×4 (08:53→21:01)
[2021-07-14] MEDS: MIDODRINE HCL 5MG TABLET PO SCH ×3 (08:54→17:00)
[2021-07-14] MEDS ORDERED: NOREPINEPHRINE 8MG/250ML PMX 250 ML IV ONE (13:30)
[2021-07-14 13:31] LABS: BG BASE EXCESS -10.3 mmol/L (-2.0-2.0); BG CARBOXYHEMOGLOBIN 0.4 % (0.5-1.5); BG DEOXYHEMOGLOBIN 7.5 % (0.0-5.0); BG FRACTION INSPIRED OXYGEN 36; BG METHEMOGLOBIN 0.7 % (0.0-1.5); BG OXYGEN SATURATION 92.4 % (92.0-98.5); BG OXYHEMOGLOBIN 91.4 % (94.0-97.0); BG PH 7.304 (7.350-7.450); BG PO2 77.8 mmHg (75.0-100.0); BG SAMPLE SITE LEFT BRACHIAL; BG TOTAL HEMOGLOBIN 7.2 g/dL (12.0-18.0); BG VENT MODE NASAL CANNULA
[2021-07-14] MEDS ORDERED: LIDOCAINE HCL 1% 20ML VIAL (Pyxis) INJ ONE (13:50)
[2021-07-14 14:03] LABS: NUCLEATED RED BLOOD CELLS 1 /100 WBC
[2021-07-14 14:04] LABS: PLATELET ESTIMATE INCREASED
[2021-07-14] MEDS: PHENYLEPHRINE 100 MG in DEXT 5% WATER 240 ML IV PRN (15:02)
[2021-07-14 15:41] LABS: PROTHROMBIN TIME 20.1 sec (9.6-11.0)
[2021-07-14] MEDS ORDERED: PHYTONADIONE 10 MG in DEXTROSE 5% WATER 49 ML IV SCH (16:00)
[2021-07-14 17:15] LABS: HEMATOCRIT 24.3 % (42.0-52.0); HEMOGLOBIN 7.5 g/dL (14.0-18.0)
[2021-07-14] MEDS ORDERED: BLOOD SUGAR DIAGNOSTIC STRIP TEST SCH (17:20)
[2021-07-14] MEDS: PANTOPRAZOLE SODIUM 40 MG/VIAL IV SCH (19:11)
[2021-07-14] MEDS: EPOETIN ALFA-EPBX 10,000 UNIT/ML VIAL SUBCUT SCH (21:02)
[2021-07-15] VITALS (92 sets, daily range): BP systolic 49–138; BP diastolic 14–91
[2021-07-15 01:45] LABS: VITAMIN B12 SERUM > 2000.0 pg/mL (211-911)
[2021-07-15 02:55] LABS: FERRITIN > 1650 ng/mL (22-322)
[2021-07-15] MEDS: PHENYLEPHRINE 100 MG in DEXT 5% WATER 240 ML IV PRN (04:14)
[2021-07-15] MEDS: BLOOD SUGAR DIAGNOSTIC STRIP TEST SCH ×4 (05:30→21:00)
[2021-07-15] MEDS: INSULIN LISPRO 100 UNITS/ML SUBCUT SCH ×4 (05:41→21:00)
[2021-07-15 05:52] LABS: CHLORIDE 106 mEq/L (98-107)
[2021-07-15 05:58] LABS: HEMATOCRIT. 26.8 % (42.0-52.0); HEMOGLOBIN. 8.6 g/dL (14.0-18.0); MEAN CORPUSCULAR VOLUME 93.2 fL (80.0-94.0); MEAN PLATELET VOLUME 7.9 fl (7.4-10.4); PLATELET 711 x1000/uL (130-400); RED BLOOD CELL COUNT 2.88 mill/uL (4.7-6.1); RED CELL DISTRIBUTION WIDTH 16.9 % (11.6-14.6)
[2021-07-15 06:03] LABS: PHOSPHORUS 5.3 mg/dL (2.5-4.9)
[2021-07-15 06:05] LABS: INR 1.6; PROTHROMBIN TIME 16.2 sec (9.6-11.0)
[2021-07-15] MEDS: MIDODRINE HCL 5MG TABLET PO SCH ×3 (08:14→16:23)
[2021-07-15] MEDS: PANTOPRAZOLE SODIUM 40 MG/VIAL IV SCH ×2 (08:15→16:23)
[2021-07-15 09:57] LABS: NUCLEATED RED BLOOD CELLS 6 /100 WBC; PLATELET ESTIMATE INCREASED
[2021-07-15] MEDS: ACETAMINOPHEN 325MG TABLET PO PRN (14:15)
[2021-07-15 15:06] LABS: HEMATOCRIT 25.6 % (42.0-52.0); HEMOGLOBIN 8.4 g/dL (14.0-18.0)
[2021-07-15 16:36] LABS: HEPATITIS B SURFACE ANTIGEN NEGATIVE
[2021-07-16] VITALS (95 sets, daily range): BP systolic 78–136; BP diastolic 28–102
[2021-07-16 05:28] LABS: CHLORIDE 107 mEq/L (98-107)
[2021-07-16 05:36] LABS: PHOSPHORUS 6.1 mg/dL (2.5-4.9)
[2021-07-16 05:37] LABS: CREATINE KINASE 138 IU/L (39-308); LDL CHOLESTEROL 50 mg/dL (5-100)
[2021-07-16 05:38] LABS: HDL CHOLESTEROL 24 mg/dL (40-59)
[2021-07-16 05:45] LABS: HEMATOCRIT. 25.9 % (42.0-52.0); HEMOGLOBIN. 8.2 g/dL (14.0-18.0); MEAN CORPUSCULAR HEMOGLOBIN 30.5 pg (28.0-32.0); MEAN CORPUSCULAR VOLUME 95.8 fL (80.0-94.0); MEAN PLATELET VOLUME 7.3 fl (7.4-10.4); PLATELET 419 x1000/uL (130-400); RED CELL DISTRIBUTION WIDTH 18.2 % (11.6-14.6)
[2021-07-16 06:06] LABS: INR 1.3; PROTHROMBIN TIME 13.7 sec (9.6-11.0)
[2021-07-16] MEDS: BLOOD SUGAR DIAGNOSTIC STRIP TEST SCH ×4 (06:53→21:15)
[2021-07-16] MEDS: INSULIN LISPRO 100 UNITS/ML SUBCUT SCH ×4 (06:54→21:00)
[2021-07-16] MEDS: PANTOPRAZOLE SODIUM 40 MG/VIAL IV SCH ×2 (08:06→16:51)
[2021-07-16] MEDS: MIDODRINE HCL 5MG TABLET PO SCH ×3 (08:06→16:51)
[2021-07-16 08:22] LABS: NUCLEATED RED BLOOD CELLS 2 /100 WBC; PLATELET ESTIMATE INCREASED
[2021-07-16 08:40] LABS: BG BASE EXCESS -5.5 mmol/L (-2.0-2.0); BG CARBOXYHEMOGLOBIN 0.6 % (0.5-1.5); BG DEOXYHEMOGLOBIN 21.7 % (0.0-5.0); BG HCO3 ACT 22.7 mmol/L (22.0-26.0); BG METHEMOGLOBIN 0.3 % (0.0-1.5); BG OXYGEN SATURATION 78.1 % (92.0-98.5); BG OXYHEMOGLOBIN 77.4 % (94.0-97.0); BG PCO2 59.4 mmHg (35.0-45.0); BG PO2 48.1 mmHg (75.0-100.0); BG SAMPLE SITE ALINE; BG TOTAL HEMOGLOBIN 9.1 g/dL (12.0-18.0); BG VENT MODE NASAL CANNULA
[2021-07-16 09:44] LABS: BG CARBOXYHEMOGLOBIN 0.3 % (0.5-1.5); BG DEOXYHEMOGLOBIN 4.8 % (0.0-5.0); BG FRACTION INSPIRED OXYGEN 32; BG HCO3 ACT 21.3 mmol/L (22.0-26.0); BG METHEMOGLOBIN 0.2 % (0.0-1.5); BG OXYGEN SATURATION 95.2 % (92.0-98.5); BG OXYHEMOGLOBIN 94.7 % (94.0-97.0); BG PCO2 57.9 mmHg (35.0-45.0); BG PH 7.184 (7.350-7.450); BG PO2 93.5 mmHg (75.0-100.0); BG SAMPLE SITE LEFT RADIAL; BG TOTAL HEMOGLOBIN 9.3 g/dL (12.0-18.0); BG VENT MODE NASAL CANNULA
[2021-07-16 14:00] LABS: BG BASE EXCESS -4.4 mmol/L (-2.0-2.0); BG CARBOXYHEMOGLOBIN 0.3 % (0.5-1.5); BG DEOXYHEMOGLOBIN 5.6 % (0.0-5.0); BG FRACTION INSPIRED OXYGEN 32; BG HCO3 ACT 22.4 mmol/L (22.0-26.0); BG METHEMOGLOBIN 0.3 % (0.0-1.5); BG OXYGEN SATURATION 94.4 % (92.0-98.5); BG OXYHEMOGLOBIN 93.8 % (94.0-97.0); BG PCO2 49.3 mmHg (35.0-45.0); BG PH 7.276 (7.350-7.450); BG PO2 77.7 mmHg (75.0-100.0); BG SAMPLE SITE LEFT RADIAL; BG TOTAL HEMOGLOBIN 9.9 g/dL (12.0-18.0); BG VENT MODE NASAL CANNULA
[2021-07-16] MEDS: PHENYLEPHRINE 100 MG in DEXT 5% WATER 240 ML IV PRN (17:47)
[2021-07-16] MEDS: IPRATROPIUM/ALBUTEROL 0.5-3(2.5)MG/3ML NEB HHN SCH (20:34)
[2021-07-16] MEDS: EPOETIN ALFA-EPBX 10,000 UNIT/ML VIAL SUBCUT SCH (22:31)
[2021-07-17] VITALS (80 sets, daily range): BP systolic 93–138; BP diastolic 27–89
[2021-07-17] MEDS: IPRATROPIUM/ALBUTEROL 0.5-3(2.5)MG/3ML NEB HHN SCH ×4 (01:55→21:17)
[2021-07-17 05:16] LABS: HEMATOCRIT. 27.9 % (42.0-52.0); HEMOGLOBIN. 8.9 g/dL (14.0-18.0); MEAN CORPUSCULAR HEMOGLOBIN 30.5 pg (28.0-32.0); MEAN CORPUSCULAR VOLUME 95.4 fL (80.0-94.0); MEAN PLATELET VOLUME 7.6 fl (7.4-10.4); PLATELET 341 x1000/uL (130-400); RED BLOOD CELL COUNT 2.92 mill/uL (4.7-6.1); RED CELL DISTRIBUTION WIDTH 18.3 % (11.6-14.6)
[2021-07-17 05:26] LABS: INR 1.2; PROTHROMBIN TIME 12.6 sec (9.6-11.0)
[2021-07-17 05:31] LABS: CHLORIDE 105 mEq/L (98-107)
[2021-07-17 05:39] LABS: LDL CHOLESTEROL 66 mg/dL (5-100)
[2021-07-17 05:42] LABS: HDL CHOLESTEROL 24 mg/dL (40-59)
[2021-07-17] MEDS: BLOOD SUGAR DIAGNOSTIC STRIP TEST SCH ×4 (06:30→20:49)
[2021-07-17] MEDS: PANTOPRAZOLE SODIUM 40 MG/VIAL IV SCH ×2 (08:32→17:41)
[2021-07-17] MEDS: MIDODRINE HCL 5MG TABLET PO SCH ×3 (08:33→17:41)
[2021-07-17] MEDS: INSULIN LISPRO 100 UNITS/ML SUBCUT SCH ×4 (08:34→21:00)
[2021-07-17 09:30] LABS: BG CARBOXYHEMOGLOBIN 0.4 % (0.5-1.5); BG DEOXYHEMOGLOBIN 1.7 % (0.0-5.0); BG FRACTION INSPIRED OXYGEN 32; BG HCO3 ACT 22.1 mmol/L (22.0-26.0); BG METHEMOGLOBIN 0.3 % (0.0-1.5); BG OXYGEN SATURATION 98.3 % (92.0-98.5); BG OXYHEMOGLOBIN 97.6 % (94.0-97.0); BG PCO2 50.7 mmHg (35.0-45.0); BG PH 7.257 (7.350-7.450); BG PO2 133.1 mmHg (75.0-100.0); BG SAMPLE SITE LEFT RADIAL; BG TOTAL HEMOGLOBIN 9.4 g/dL (12.0-18.0); BG VENT MODE NASAL CANNULA
[2021-07-17] MEDS: LACTULOSE 20G/30ML UDC PO SCH ×2 (13:06→21:09)
[2021-07-17] MEDS: PHENYLEPHRINE 100 MG in DEXT 5% WATER 240 ML IV PRN (13:57)
[2021-07-17] MEDS: FUROSEMIDE 100MG/10ML VIAL IVP SCH ×2 (13:57→17:42)
[2021-07-17 14:04] LABS: NUCLEATED RED BLOOD CELLS 1 /100 WBC
[2021-07-17 14:06] LABS: PLATELET ESTIMATE NORMAL
[2021-07-18] VITALS (101 sets, daily range): BP systolic 52–163; BP diastolic 24–97
[2021-07-18] MEDS: IPRATROPIUM/ALBUTEROL 0.5-3(2.5)MG/3ML NEB HHN SCH ×4 (03:16→20:59)
[2021-07-18] MEDS: BLOOD SUGAR DIAGNOSTIC STRIP TEST SCH ×4 (05:16→21:00)
[2021-07-18 06:10] LABS: CHLORIDE 105 mEq/L (98-107)
[2021-07-18 06:12] LABS: INR 1.1; PROTHROMBIN TIME 11.8 sec (9.6-11.0)
[2021-07-18 06:18] LABS: HEMATOCRIT. 26.9 % (42.0-52.0); HEMOGLOBIN. 8.6 g/dL (14.0-18.0); MEAN CORPUSCULAR HEMOGLOBIN 30.9 pg (28.0-32.0); MEAN CORPUSCULAR VOLUME 96.6 fL (80.0-94.0); MEAN PLATELET VOLUME 7.9 fl (7.4-10.4); PHOSPHORUS 5.1 mg/dL (2.5-4.9); PLATELET 274 x1000/uL (130-400); RED BLOOD CELL COUNT 2.78 mill/uL (4.7-6.1); RED CELL DISTRIBUTION WIDTH 19.5 % (11.6-14.6)
[2021-07-18] MEDS: LACTULOSE 20G/30ML UDC PO SCH ×3 (06:48→22:13)
[2021-07-18] MEDS: INSULIN LISPRO 100 UNITS/ML SUBCUT SCH ×4 (06:50→22:14)
[2021-07-18] MEDS ORDERED: POTASSIUM CHLORIDE 20MEQ/PACKET PO NR (09:30)
[2021-07-18] MEDS: FUROSEMIDE 100MG/10ML VIAL IVP SCH ×2 (09:40→18:13)
[2021-07-18] MEDS: PANTOPRAZOLE SODIUM 40 MG/VIAL IV SCH ×2 (09:41→18:13)
[2021-07-18] MEDS: MIDODRINE HCL 5MG TABLET PO SCH ×3 (09:41→18:13)
[2021-07-18 13:28] LABS: NUCLEATED RED BLOOD CELLS 1 /100 WBC
[2021-07-18 13:29] LABS: PLATELET ESTIMATE NORMAL
[2021-07-18] MEDS: PHENYLEPHRINE 100 MG in DEXT 5% WATER 240 ML IV PRN ×3 (19:26→22:36)
[2021-07-18] MEDS: NOREPINEPHRINE 8 MG in DEXTROSE 5% WATER 250 ML IV PRN ×2 (20:35→22:36)
[2021-07-18 20:40] LABS: BG BASE EXCESS -13.6 mmol/L (-2.0-2.0); BG CARBOXYHEMOGLOBIN 0.7 % (0.5-1.5); BG DEOXYHEMOGLOBIN 3.7 % (0.0-5.0); BG FRACTION INSPIRED OXYGEN 100; BG HCO3 ACT 16.2 mmol/L (22.0-26.0); BG METHEMOGLOBIN 0.4 % (0.0-1.5); BG OXYGEN SATURATION 96.3 % (92.0-98.5); BG OXYHEMOGLOBIN 95.2 % (94.0-97.0); BG PCO2 56.7 mmHg (35.0-45.0); BG PH 7.075 (7.350-7.450); BG PO2 98.2 mmHg (75.0-100.0); BG TOTAL HEMOGLOBIN 10.5 g/dL (12.0-18.0); BG TOTAL RESPIRATORY RATE 18 b/min; BG VENT MODE VENT - AC
[2021-07-18] MEDS ORDERED: SODIUM BICARBONATE 8.4% 1 MEQ/ML 50ML SYR IV NR (21:00)
[2021-07-18 21:35] LABS: BG SAMPLE SITE RIGHT FEMORAL
[2021-07-18 22:14] LABS: HEMATOCRIT. 33.6 % (42.0-52.0); HEMOGLOBIN. 10.3 g/dL (14.0-18.0); MEAN CORPUSCULAR VOLUME 97.6 fL (80.0-94.0); MEAN PLATELET VOLUME 8.2 fl (7.4-10.4); PLATELET 317 x1000/uL (130-400); RED BLOOD CELL COUNT 3.45 mill/uL (4.7-6.1); RED CELL DISTRIBUTION WIDTH 20.2 % (11.6-14.6)
[2021-07-18 23:11] LABS: BG BASE EXCESS -4.6 mmol/L (-2.0-2.0); BG CARBOXYHEMOGLOBIN 0.5 % (0.5-1.5); BG DEOXYHEMOGLOBIN 0.3 % (0.0-5.0); BG FRACTION INSPIRED OXYGEN 100; BG METHEMOGLOBIN 0.4 % (0.0-1.5); BG OXYGEN SATURATION 99.7 % (92.0-98.5); BG OXYHEMOGLOBIN 98.8 % (94.0-97.0); BG PCO2 34.9 mmHg (35.0-45.0); BG PH 7.375 (7.350-7.450); BG SAMPLE SITE LEFT RADIAL; BG TOTAL HEMOGLOBIN 11.2 g/dL (12.0-18.0); BG VENT MODE VENT - AC
[2021-07-19] VITALS (97 sets, daily range): BP systolic 82–178; BP diastolic 20–93
[2021-07-19] MEDS: IPRATROPIUM/ALBUTEROL 0.5-3(2.5)MG/3ML NEB HHN SCH ×4 (01:26→20:51)
[2021-07-19 01:52] LABS: NUCLEATED RED BLOOD CELLS 4 /100 WBC
[2021-07-19 01:53] LABS: PLATELET ESTIMATE NORMAL
[2021-07-19] MEDS: LACTULOSE 20G/30ML UDC PO SCH ×4 (05:21→21:15)
[2021-07-19] MEDS: BLOOD SUGAR DIAGNOSTIC STRIP TEST SCH ×4 (05:21→21:02)
[2021-07-19] MEDS: INSULIN LISPRO 100 UNITS/ML SUBCUT SCH ×4 (05:22→21:15)
[2021-07-19 05:56] LABS: CHLORIDE 107 mEq/L (98-107)
[2021-07-19 05:57] LABS: HEMOGLOBIN. 10.2 g/dL (14.0-18.0); MEAN CORPUSCULAR HEMOGLOBIN 30.6 pg (28.0-32.0); MEAN CORPUSCULAR VOLUME 93.4 fL (80.0-94.0); MEAN PLATELET VOLUME 8.4 fl (7.4-10.4); PLATELET 245 x1000/uL (130-400); RED BLOOD CELL COUNT 3.32 mill/uL (4.7-6.1); RED CELL DISTRIBUTION WIDTH 19.5 % (11.6-14.6)
[2021-07-19 06:03] LABS: INR 1.2
[2021-07-19 06:04] LABS: PHOSPHORUS 4.4 mg/dL (2.5-4.9)
[2021-07-19 09:12] LABS: BG BASE EXCESS -3.7 mmol/L (-2.0-2.0); BG CARBOXYHEMOGLOBIN 0.4 % (0.5-1.5); BG DEOXYHEMOGLOBIN 1.4 % (0.0-5.0); BG FRACTION INSPIRED OXYGEN 50; BG HCO3 ACT 20.1 mmol/L (22.0-26.0); BG METHEMOGLOBIN 0.3 % (0.0-1.5); BG OXYGEN SATURATION 98.6 % (92.0-98.5); BG OXYHEMOGLOBIN 97.9 % (94.0-97.0); BG PCO2 31.8 mmHg (35.0-45.0); BG PH 7.418 (7.350-7.450); BG PO2 127.7 mmHg (75.0-100.0); BG SAMPLE SITE LEFT BRACHIAL; BG TOTAL HEMOGLOBIN 10.5 g/dL (12.0-18.0); BG VENT MODE VENT - AC
[2021-07-19] MEDS: FUROSEMIDE 100MG/10ML VIAL IVP SCH ×2 (09:53→17:44)
[2021-07-19] MEDS: PANTOPRAZOLE SODIUM 40 MG/VIAL IV SCH ×2 (09:53→17:44)
[2021-07-19] MEDS: MIDODRINE HCL 5MG TABLET PO SCH ×3 (09:54→17:44)
[2021-07-19] MEDS: PHENYLEPHRINE 100 MG in DEXT 5% WATER 240 ML IV PRN ×3 (09:55→23:41)
[2021-07-19 10:08] LABS: PLATELET ESTIMATE NORMAL
[2021-07-19] MEDS ORDERED: POTASSIUM CHLORIDE 20MEQ/PACKET PO NR (10:30)
[2021-07-19] MEDS: ACETAMINOPHEN 325MG TABLET PO PRN (11:49)
[2021-07-19] MEDS: PIPERACILLIN/TAZOBACTAM 3.375 G in DEXTROSE 5% WATER 50 ML IV SCH ×2 (12:54→21:15)
[2021-07-19] MEDS: NOREPINEPHRINE 8 MG in DEXTROSE 5% WATER 250 ML IV PRN (12:57)
[2021-07-19] MEDS ORDERED: VANCOMYCIN 1,750 MG in DEXT 5% WATER 250 ML IV NR (13:00)
[2021-07-19] MEDS ORDERED: HEPARIN SODIUM 1,000 UNIT/1ML VIAL IV NR ×2 (13:00)
[2021-07-19] MEDS: NOREPINEPHRINE 32 MG in DEXTROSE 5% WATER 250 ML IV PRN (16:47)
[2021-07-19] MEDS ORDERED: EPOETIN ALFA-EPBX 10,000 UNIT/ML VIAL SUBCUT SCH (21:00)
[2021-07-20] VITALS (65 sets, daily range): BP systolic 72–127; BP diastolic 19–99
[2021-07-20] MEDS: ACETAMINOPHEN 325MG TABLET PO PRN ×2 (00:43→06:19)
[2021-07-20] MEDS: IPRATROPIUM/ALBUTEROL 0.5-3(2.5)MG/3ML NEB HHN SCH ×3 (03:16→12:00)
[2021-07-20] MEDS: BLOOD SUGAR DIAGNOSTIC STRIP TEST SCH (05:56)
[2021-07-20] MEDS: LACTULOSE 20G/30ML UDC PO SCH ×2 (05:56→06:18)
[2021-07-20] MEDS: INSULIN LISPRO 100 UNITS/ML SUBCUT SCH (05:56)
[2021-07-20 06:09] LABS: HEMATOCRIT. 28.2 % (42.0-52.0); HEMOGLOBIN. 9.3 g/dL (14.0-18.0); MEAN CORPUSCULAR HEMOGLOBIN 31.1 pg (28.0-32.0); MEAN PLATELET VOLUME 9.5 fl (7.4-10.4); PLATELET 182 x1000/uL (130-400); RED CELL DISTRIBUTION WIDTH 21.2 % (11.6-14.6)
[2021-07-20] MEDS: PHENYLEPHRINE 100 MG in DEXT 5% WATER 240 ML IV PRN ×2 (06:18→13:09)
[2021-07-20] MEDS: FUROSEMIDE 100MG/10ML VIAL IVP SCH (06:19)
[2021-07-20 06:46] LABS: CHLORIDE 100 mEq/L (98-107)
[2021-07-20 06:53] LABS: PHOSPHORUS 2.6 mg/dL (2.5-4.9)
[2021-07-20 08:21] LABS: BG BASE EXCESS -5.9 mmol/L (-2.0-2.0); BG CARBOXYHEMOGLOBIN 0.4 % (0.5-1.5); BG DEOXYHEMOGLOBIN 3.9 % (0.0-5.0); BG HCO3 ACT 17.7 mmol/L (22.0-26.0); BG METHEMOGLOBIN 0.4 % (0.0-1.5); BG OXYGEN SATURATION 96.1 % (92.0-98.5); BG OXYHEMOGLOBIN 95.3 % (94.0-97.0); BG PCO2 28.3 mmHg (35.0-45.0); BG PH 7.415 (7.350-7.450); BG PO2 81.6 mmHg (75.0-100.0); BG SAMPLE SITE LEFT BRACHIAL; BG TOTAL HEMOGLOBIN 9.3 g/dL (12.0-18.0); BG VENT MODE VENT - AC
[2021-07-20] MEDS: PIPERACILLIN/TAZOBACTAM 3.375 G in DEXTROSE 5% WATER 50 ML IV SCH (09:00)
[2021-07-20] MEDS: PANTOPRAZOLE SODIUM 40 MG/VIAL IV SCH (09:00)
[2021-07-20] MEDS: MIDODRINE HCL 5MG TABLET PO SCH (09:00)
[2021-07-20] MEDS ORDERED: MORPHINE SULFATE 250 MG in DEXT 5% WATER 240 ML IV PRN (09:30)
[2021-07-20 12:56] LABS: NUCLEATED RED BLOOD CELLS 3 /100 WBC; PLATELET ESTIMATE NORMAL
[2021-07-20] MEDS: NOREPINEPHRINE 32 MG in DEXTROSE 5% WATER 250 ML IV PRN (13:08)
== END 2021-07-20 17:04 | DRG 871 ==
LOC: ER 12:25 → EDBEDREQSVC 19:22 → EDBEDREQTM 19:22 → EDBEDREQ 19:22 → EDBEDREQSVC 23:57 → ENRESERV 07-10 07:48 → 6WST 07-10 08:54 → MICUSO 07-14 13:07 → MICUNO 07-16 02:37
PROVIDERS: ADMIT Hospitalist; ATTEND Hospitalist
PROC: 5A1D70Z Performance of Urinary Filtration, Intermittent, Less than 6 Hours Per Day (ICD-10-PCS; 2021-07-12)
PROC: 30233N1 Transfusion of Nonautologous Red Blood Cells into Peripheral Vein, Percutaneous Approach (ICD-10-PCS; 2021-07-13)
PROC: 02HV33Z Insertion of Infusion Device into Superior Vena Cava, Percutaneous Approach (ICD-10-PCS; 2021-07-14)
PROC: B548ZZA Ultrasonography of Superior Vena Cava, Guidance (ICD-10-PCS; 2021-07-14)
PROC: 5A1D70Z Performance of Urinary Filtration, Intermittent, Less than 6 Hours Per Day (ICD-10-PCS; 2021-07-14)
PROC: 5A1945Z Respiratory Ventilation, 24-96 Consecutive Hours (ICD-10-PCS; principal; 2021-07-18)
PROC: 5A12012 Performance of Cardiac Output, Single, Manual (ICD-10-PCS; 2021-07-18)
PROC: 0BH17EZ Insertion of Endotracheal Airway into Trachea, Via Natural or Artificial Opening (ICD-10-PCS; 2021-07-18)
PROC: 02HV33Z Insertion of Infusion Device into Superior Vena Cava, Percutaneous Approach (ICD-10-PCS; 2021-07-19)
PROC: 5A1D70Z Performance of Urinary Filtration, Intermittent, Less than 6 Hours Per Day (ICD-10-PCS; 2021-07-19)
DX: A41.9 Sepsis, unspecified organism (principal); L89.153 Pressure ulcer of sacral region, stage 3; J96.01 Acute respiratory failure with hypoxia; E43 Unspecified severe protein-calorie malnutrition; N18.6 End stage renal disease; J96.02 Acute respiratory failure with hypercapnia; R65.21 Severe sepsis with septic shock; I50.33 Acute on chronic diastolic (congestive) heart failure; J18.9 Pneumonia, unspecified organism; I13.2 Hypertensive heart and chronic kidney disease with heart failure and with stage 5 chronic kidney disease, or end stage renal disease; I42.9 Cardiomyopathy, unspecified; D62 Acute posthemorrhagic anemia; E87.1 Hypo-osmolality and hyponatremia; D68.9 Coagulation defect, unspecified; G93.1 Anoxic brain damage, not elsewhere classified; K92.1 Melena; G93.40 Encephalopathy, unspecified; R57.1 Hypovolemic shock; D63.1 Anemia in chronic kidney disease; D75.839 Thrombocytosis, unspecified; E11.22 Type 2 diabetes mellitus with diabetic chronic kidney disease; E11.51 Type 2 diabetes mellitus with diabetic peripheral angiopathy without gangrene; E78.5 Hyperlipidemia, unspecified; I36.1 Nonrheumatic tricuspid (valve) insufficiency; I25.10 Atherosclerotic heart disease of native coronary artery without angina pectoris; I27.20 Pulmonary hypertension, unspecified; I44.7 Left bundle-branch block, unspecified; I35.1 Nonrheumatic aortic (valve) insufficiency; E83.39 Other disorders of phosphorus metabolism; J44.9 Chronic obstructive pulmonary disease, unspecified; E03.9 Hypothyroidism, unspecified; D69.6 Thrombocytopenia, unspecified; I46.9 Cardiac arrest, cause unspecified; Z66 Do not resuscitate; Z20.822 Contact with and (suspected) exposure to COVID-19; R56.9 Unspecified convulsions; Z79.4 Long term (current) use of insulin; Z82.49 Family history of ischemic heart disease and other diseases of the circulatory system; Z87.891 Personal history of nicotine dependence; Z89.511 Acquired absence of right leg below knee; Z89.512 Acquired absence of left leg below knee; Z95.0 Presence of cardiac pacemaker; Z99.2 Dependence on renal dialysis; Z68.28 Body mass index [BMI] 28.0-28.9, adult; Z51.5 Encounter for palliative care; Z86.718 Personal history of other venous thrombosis and embolism; Z86.73 Personal history of transient ischemic attack (TIA), and cerebral infarction without residual deficits; D53.9 Nutritional anemia, unspecified; I49.01 Ventricular fibrillation
CPT/HCPCS: 36415; 36556; 36600; 71045; 76700; 76937; 80048; 80053; 80061; 80076; 82040; 82140; 82270; 82330; 82375; 82550; 82607; 82728; 82746; 82805; 82962; 83036; 83540; 83550; 83735; 83880; 84100; 84134; 84145; 84484; 85014; 85018; 85025; 85049; 85384; 86705; 86709; 86803; 86850; 86900; 86920; 87070; 87340; 87426; 92950; 93005; 93306; 93976; 94002; 94003; 94640; 97161; 97165; 99291; C1725; C1752; C1893; C9113; J0885; J1644; J1650; J1815; J1940; J2370; J2543; J3370; J3430; J3490; J7040; J7060; P9016